=== PATIENT | male | born 2000 | race Two or more races ===

== ENCOUNTER 2020-10-19 19:53 | Emergency (ER) | payer SELFPAY ==
[~2020-10-19] VITALS: Ht 167.6 cm; Wt 113.4 kg
--- NOTE | 2020-10-19 20:00 | NUR ---
ED Nurse Note: Patient brought in by ambulance RA61 from home accompanied by [employer] d/t agitation and delirium. Patient alert and awake upon arrival but verbally and physically aggressive. Patient uncooperative and refuses to cooperate with assessments. Patient placed in 4 point leather restraints as ordered by ERMD. No acute distress noted during assessment.
[2020-10-19] MEDS ORDERED: DiphenhydrAMINE 50mg/ml Inj ONE (20:03)
[2020-10-19] MEDS ORDERED: LORazepam Inj 2mg/ml 1ml ONE (20:03)
[2020-10-19] MEDS ORDERED: Haloperidol 5mg/ml Inj ONE (20:03)
[2020-10-19] MEDS ORDERED: Haloperidol 5mg/ml Inj IM ONE (20:15)
[2020-10-19] MEDS ORDERED: LORazepam Inj 2mg/ml 1ml IM ONE (20:15)
[2020-10-19] MEDS ORDERED: DiphenhydrAMINE 50mg/ml Inj IM ONE (20:15)
--- NOTE | 2020-10-19 20:45 | NUR ---
ED Nurse Note: IV established on right forearm 18g, blood drawn and sent to lab. Attempted to collect urine via straight cath, no urine collected, ERMD made aware, will attempt to collect urine once fluids completed.
[2020-10-19 20:52] LABS: EOSINOPHILS % (AUTO) 1.1 % (0.0-3.0); HEMATOCRIT 46.6 % (42.0-52.0); HEMOGLOBIN 16.2 G/DL (14.2-18.0); LYMPHOCYTES % (AUTO) 11.8 % (20.0-45.0); MEAN CORPUSCULAR VOLUME 88 FL (80-99); MONOCYTES % (AUTO) 6.4 % (1.0-10.0); NEUTROPHILS % (AUTO) 78.7 % (45.0-75.0); PLATELET COUNT 156 K/UL (150-450); RED BLOOD COUNT 5.33 M/UL (4.70-6.10); RED CELL DISTRIBUTION WIDTH 12.8 % (11.6-14.8); WHITE BLOOD COUNT 9.5 K/UL (4.8-10.8)
[2020-10-19 20:55] LABS: ANION GAP 16 mmol/L (5-15); BLOOD UREA NITROGEN 18 mg/dL (7-18); CALCIUM 9.7 MG/DL (8.5-10.1); CARBON DIOXIDE 22 MMOL/L (21-32); CHLORIDE 104 MMOL/L (98-107); CREATININE 1.7 MG/DL (0.55-1.30); SODIUM 142 MMOL/L (136-145)
--- NOTE | 2020-10-19 20:55 | NUR ---
ED Nurse Note: Assumed care of patient. Patient placed in ortho. He appears to be sleeping at this time. NAD noted.
[2020-10-19 20:59] LABS: ALANINE AMINOTRANSFERASE 25 U/L (12-78); ALBUMIN 4.7 G/DL (3.4-5.0); ALBUMIN/GLOBULIN RATIO 1.2 (1.0-2.7); ALKALINE PHOSPHATASE 81 U/L (46-116); ASPARTATE AMINO TRANSFERASE 23 U/L (15-37); BILIRUBIN,TOTAL 0.7 MG/DL (0.2-1.0)
--- NOTE | 2020-10-19 21:20 | NUR ---
ED Nurse Note: Restraints DC at this time. He is calm and sleeping. No danger to self or others at this time. Skin and CMS intact.
--- NOTE | 2020-10-19 23:10 | Emergency Room Report ---
History of Present Illness General Chief Complaint: Behavioral Complaint Source: Patient, EMS (Pa Chowdary MD) Present Illness HPI 20-year-old male presents for evaluation. Brought in by EMS from home. Agitated and aggressive. Given Versed in field. Still screaming and yelling. Started banging his head and said he wanted to hurt himself. [employer] at scene. Placed patient on 5150 hold. Unclear whether patient has a psychiatric history. No other aggravating relieving factors. No other associated symptoms (Pa Chowdary MD) Allergies: Coded Allergies: No Known Allergies (Unverified , 10/19/20) COVID-19 Screening Contact w/high risk pt: No Experienced COVID-19 symptoms?: No COVID-19 Testing performed ATHLETIC SHOE DESIGNER: No (Pa Chowdary MD) Patient History Past Medical History: none Past Surgical History: none Pertinent Family History: none Social History: Denies: smoking, alcohol use, drug use Immunizations: UTD Reviewed Nursing Documentation: PMH: Agreed; PSxH: Agreed (Pa Chowdary MD) Nursing Documentation-PMH Past Medical History: No Stated History (Pa Chowdary MD) Review of Systems All Other Systems: negative except mentioned in HPI (Pa Chowdary MD) Physical Exam Vital Signs Date Time Temp Pulse Resp B/P (MAP) Pulse Ox O2 Delivery O2 Flow Rate FiO2 10/19/20 19:59 98.2 114 17 115/64 (81) 97 Room Air Sp02 EP Interpretation: reviewed, normal General Appearance: other - agitated/combative Head: normocephalic Eyes: bilateral eye normal inspection, bilateral eye PERRL ENT: hearing grossly normal, normal pharynx, no angioedema, normal voice Neck: full range of motion, supple/symm/no masses Respiratory: chest non-tender, lungs clear, normal breath sounds, speaking full sentences Cardiovascular #1: regular rate, rhythm, no edema Gastrointestinal: normal bowel sounds, non tender, soft, non-distended, no guarding, no rebound Rectal: deferred Genitourinary: no CVA tenderness Musculoskeletal: normal inspection Neurologic: other - agitated/combative Psychiatric: other - agitated/combative Skin: no rash Lymphatic: normal inspection (Pa Chowdary MD) Procedures Critical Care Time Critical Care Time i. I feel this is a highly complex case requiring extensive working including EKG/Rhythm strip, Xray/CT/US, Blood/urine lab work, repeat exams while in ED, and administration of strong opiates/narcotics for pain control, admission to hospital or close patient follow up. Total time: 30 min bedside evaluation and treatment excludes procedures (EKG). Reason for critical care: Altered level of consciousness, agitated behavior Possible complications: hypotension, hypertension, [place], shock, arrhythmias, m etabolic acidosis, end organ damage, respiratory failure. Interventions: Restraints, Haldol, Ativan, Benadryl. Labs Course: Patient presenting with agitated behavior. Brought in by [employer]. Patient sedated with Haldol, Ativan, Benadryl. Restraints in place. Consultations: nursing staff, EMS, family Performed by: Dr Chowdary Tolerated well condition = serious j. because of unstable vital signs this patient had a condition that could potentially threaten life or limb. I feel this is a critical patient who required my full attention while patient was considered critical. Total Critical Care Time excluding procedures was greater than 35 minutes (Pa Chowdary MD) Medical Decision Making Diagnostic Impression: Primary Impression: Altered level of consciousness Additional Impressions: Behavioral change Polysubstance abuse Hypokalemia UTI (urinary tract infection) ER Course Patient signed out by Dr. Chowdary at 2300. Patient presented to emergency room with behavioral disturbances on 5150 by [employer]. Patient hypokalemic with potassium of 3. 40 mEq of oral potassium chloride have been ordered. Patient also demonstrates dehydration with creatinine of 1.7. IV fluids ordered by prior attending. Patient's UA positive for methamphetamines, THC, and cocaine. Patient's UA is positive. Due to age we will treat for STDs as well as UTI. Patient given Rocephin and oral azithromycin. (Ginger Alvarez M.D.) ER Course Addendum added Patient psychiatric hold was lifted and patient was cleared by Dr. Arreguin ([facility]) Last Vital Signs Date Time Temp Pulse Resp B/P (MAP) Pulse Ox O2 Delivery O2 Flow Rate FiO2 10/19/20 21:20 105 18 98 Room Air 10/19/20 19:59 98.2 115/64 (81) Status: improved (Pa Chowdary MD) Disposition: HOME, SELF-CARE Condition: Stable Scripts No Active Prescriptions or Reported Meds Referrals: NOT CHOSEN IPA/,REFERRING (PCP) Pa Chowdary MD Oct 19, 2020 23:10 Ginger Alvarez M.D. Oct 20, 2020 00:16 Anahi Zambrano Oct 20, 2020 14:49
[2020-10-19 23:21] LABS: APPEARANCE,URINE CLEAR; BILIRUBIN, URINE NEGATIVE (NEGATIVE); GLUCOSE, URINE (UA) NEGATIVE (NEGATIVE); KETONES,URINE 3+ (NEGATIVE); LEUKOCYTE ESTERASE ,URINE 2+ (NEGATIVE); NITRITE,URINE NEGATIVE (NEGATIVE); PH,URINE 5 (4.5-8.0); PROTEIN,URINE 3+ (NEGATIVE); UROBILINOGEN,URINE 1 MG/DL (0.0-1.0)
[2020-10-19 23:28] LABS: COLOR,URINE YELLOW
--- NOTE | 2020-10-20 | NUR ---
ED Nurse Note: Patient had woken up after being straight cath for urine. He is now sleeping again. Breathing is normal. RN bedside.
[2020-10-20] MEDS ORDERED: Azithromycin 250mg tab ORAL ONE (00:15)
[2020-10-20] MEDS ORDERED: cefTRIAXone 1 GM in NS 55 ML IVPB ONE (00:15)
--- NOTE | 2020-10-20 00:55 | NUR ---
ED Nurse Note: SONDRA Mendez ok with PO antibx being administered in the morning when patient is more compliant and cooperative. Will not administer azithromycin at this time.
--- NOTE | 2020-10-20 03:00 | NUR ---
ED Nurse Note: Patient is sleeping at this time. Breathing is normal and unlabored. Safety measures met.
[2020-10-20 05:30] VITALS: BP 128/73
--- NOTE | 2020-10-20 05:30 | NUR ---
ED Nurse Note: Vital signs assessed and are stable. He remains sleeping at this time. RN bedside monitoring patient. Safety measures met.
--- NOTE | 2020-10-20 07:15 | NUR ---
HAND-OFF: Report given to AYDIN Olivas.
--- NOTE | 2020-10-20 07:46 | NUR ---
Note russone in EDM - 10/20/20 at 0747 by JASON ED Nurse Note: Pt cleared by health care Provider for discharge. DC instructions/prescription was given and explained to pt and verbalized understanding of teachings. All medical deviecs such as ID band removed. Pt is AAO x4, ambulatory and left with all personal belongings.
--- NOTE | 2020-10-20 07:47 | NUR ---
ED Nurse Note: Pt is resting with eyes closed not answering most questions. Pt is breathing is even and unlabored. Moved blanket bellow pt's head. pt states that he is not SI
[2020-10-20 08:00] VITALS: BP 115/60
--- NOTE | 2020-10-20 08:33 | NUR ---
ED Nurse Note: Pt is still resting with eyes closed breathing is unlabored. Ok per MD to give meds when more alert.
[2020-10-20] MEDS ORDERED: Azithromycin 250mg tab ONE ×2 (09:47→09:49)
--- NOTE | 2020-10-20 09:54 | NUR ---
ED Nurse Note: Pt is lethargic but wakes to name. He states that he does not feel like hurting himself or others.
[2020-10-20 10:37] VITALS: BP 120/72
--- NOTE | 2020-10-20 10:37 | NUR ---
ED Nurse Note: lying down on gurney with eyes closed. breathing is even and unlabored.
--- NOTE | 2020-10-20 11:34 | NUR ---
ED Nurse Note: received patient from fast track, received report from piyush carrasco, pt is on 5150 hold. pt is resting in bed, calm and cooperative at the moment, tomi ponce noted.
--- NOTE | 2020-10-20 12:22 | NUR ---
ED Nurse Note: Assisted patient to restroom. Patient ambulating with steady gait. Patient back to room. Dimmed the light. Bed in lowest position.
--- NOTE | 2020-10-20 14:30 | NUR ---
ED Nurse Note: DR. LUJAN AT THE BEDSIDE AND LIFTED THE HOLD
--- NOTE | 2020-10-20 14:30 | NUR ---
ED Nurse Note: [address] Luna.
[2020-10-20] MEDS ORDERED: CEPHALEXIN500 MG ORAL (14:50)
[2020-10-20 14:59] VITALS: BP 132/75
--- NOTE | 2020-10-20 15:00 | NUR ---
ED Nurse Note: Patient cleared by health care Provider for discharge. DC instructions/prescription was given and explained to pt and verbalized understanding of teachings. All medical deviecs such as ID band and iv removed. Pt is AAO x4, ambulatory and left with all personal belongings.
--- NOTE | 2020-10-20 18:01 | Consultation ---
DATE OF CONSULTATION: 10/20/2020 CONSULTING PHYSICIAN: Tommie Arreguin MD HISTORY OF PRESENT ILLNESS: This is a 20-year-old male with a history of crystal meth use, who has been admitted to the hospital for medical stabilization. Patient is presenting with anxiety and agitation. He is now medicated. Patient is not having any suicidal or homicidal ideation. He was placed on a 5150. Patient is not having any behavior issues. Patient is calmer. Patient requesting to be discharged. He was dozing off when I was interviewing him. PAST PSYCHIATRIC HISTORY: Denies psychiatric hospitalization. PAST MEDICAL HISTORY: None. ALLERGIES: No known drug allergies. SUBSTANCE USE HISTORY: Crystal meth use and other illicit drug use. MENTAL STATUS EXAMINATION: Patient is awake, oriented to self, place, situation. Mood is dysphoric and anxious. Affect is blunted, congruent with mood. Thought process is concrete. Thought content, there is no suicidal or homicidal ideation. Cognition is intact. Insight and judgment fair. ASSESSMENT: Vowinckel I Methamphetamine use. Vowinckel II Deferred. Vowinckel III None. Vowinckel IV Low. Vowinckel V 60. PLAN: 1. We will discontinue the 5150. 2. Patient will be discharged to follow up with a psychiatrist. 3. Patient does not meet the criteria for a hold or psychiatric hospitalization. Tommie Arreguin M.D. DR: CAPO JOB#: [id number] CC:
== END 2020-10-20 15:00 | disposition home or self-care (01) ==
LOC: EDBD 19:53 → EMR 20:53
DX: R40.4 Transient alteration of awareness (principal); F91.9 Conduct disorder, unspecified; F15.10 Other stimulant abuse, uncomplicated; F14.10 Cocaine abuse, uncomplicated; F12.10 Cannabis abuse, uncomplicated; N39.0 Urinary tract infection, site not specified; E87.6 Hypokalemia
CPT/HCPCS: 36415; 80053; 80307; 81003; 85025; 87086; 96361; 96365; 96372; 99291; G0480; J0696; J1200; J1630; J7030; J8499